=== PATIENT | male | born 1930 | race Caucasian/White ===

== ENCOUNTER 2017-07-24 01:39 | Day surgery (SDC) | payer OTHER ==
[~2017-07-24] VITALS: Ht 175.3 cm; Wt 56.7 kg
--- NOTE | ~2017-07-24 | O ---
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 PROCEDURE: Enucleation of left eye with implantation of 16 mm Medpor sphere with muscles attached to implant, conjunctivoplasty, temporary tarsorrhaphy. SURGEON: Alejandro Antonio MD ATTENDANT ARCADE: None. ANESTHESIA: General. COMPLICATIONS: None. 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 He regularly receives intraocular antivegf injections in order to control his glaucoma. His eye is chronically painful. The patient recently had a pigmented lesion in the temporal inferior aspect of the left eye appreciated had an exam for his neovascular glaucoma. Subsequent evaluation and surgery showed that histopathologically this represented a malignant melanoma. Since the patient's left eye is nonseeing, he is chronically painful and now has a malignant conjunctival neoplasm, removal of the eye is planned. Informed consent was obtained to include but not limited to the potential risks for bleeding, infection, and the potential need for further surgery or treatment. DESCRIPTION OF PROCEDURE: The patient was taken to the operating room where general anesthesia was administered. The operating microscope was brought into position and the pathologist was brought to the room. The pathology was demonstrated to the pathologist, so that the pathologist would know where the [address] [address] OPERATIVE REPORT Name: SCOOBY BLISS Tyrel Room #: 150-11 [facility] Raymundo#: [id number] Admission: 07/24/17 Attend Phys: Alejandro Antonio MD Discharge: Date of : 30 Report #: [id number] conjunctival malignant melanoma was going to be. A discussion was undertaken as to the best way to process the tissue and the decision was ultimately made to leave the conjunctival cuff attached to the corneoscleral limbus and for the globe and the conjunctiva to be processed in one unit. The left retrobulbar space was then anesthetized with Xylocaine with epinephrine mixed with Marcaine and Wydase. An additional anesthetic was administered subconjunctivally anteriorly. The lid margins were then anesthetized with the same anesthetic mixture. The patient was subsequently prepped and draped in the usual sterile fashion. A moistened sponge was placed over the right eye while a lid speculum was placed on the left side. A 360 degree conjunctival peritomy was undertaken utilizing the operating microscope. Hemostasis was diligently achieved with diligent pinpoint monopolar cautery. The cuff of tissue inferotemporally around the melanoma was over 5 mm to ensure that no gross tumor would be left and there would be an excellent chance to clear margins. This took the conjunctiva all the way back to the lateral rectus muscle insertion and the inferior rectus muscle insertions. The oblique quadrants were then bluntly dissected. The lateral rectus muscle was then grasped with a muscle hook and cleaned of its surrounding connective tissue. A 5-0 Vicryl suture was then passed through its insertion with a locking bite at each margin. The muscle was then transected from the globe and drawn out of the field with a . The inferior, medial and superior rectus muscles were similarly isolated and retracted from the globe with a 5-0 double arm Vicryl suture. A 4-0 black silk suture was placed through the insertion of the left lateral rectus muscle in order to provide traction. The oblique muscles were identified and cut where they attached to the globe. The optic nerve was then clamped for 2 minutes. The clamp was released and the nerve was clamped once for 3 minutes. The nerve was clamped one last time for 3 more minutes. The optic nerve was then cut with an enucleation scissor and the globe oriented for the pathologist once more. It was passed off the field. An 18 mm sphere could be placed in the socket, but it appeared relatively tight. A decision was made to use a 16 mm Medpor sphere which was vacuum aspirated in antibiotic irrigation solution. It was subsequently reposited behind posterior tenons with the aid of an easy glide introducer. Posterior tenons was then closed over the implant with interrupted 5-0 Vicryl sutures. The medial and lateral rectus muscles were drawn to each other with 5-0 Vicryl sutures. The superior and inferior rectus muscles were drawn to the medial and lateral rectus muscles with interrupted 5-0 Vicryl sutures. The anterior tenons were then closed with interrupted 5-0 Vicryl sutures. Attention was then turned to the conjunctiva, which was obviously woefully deficient to close the defect with the generous excision done at the [facility] [address] [place] [address] OPERATIVE REPORT Name: SCOOBY BLISS Room #: 150-11 [facility]#: [id number] Admission: 07/24/17 Attend Phys: Alejandro Antonio MD Discharge: Date of : 30 Report #: [id number] of the case. A conjunctival flap was developed superonasally and rotated inferotemporally. It was secured with interrupted 6-0 Vicryl sutures with buried knots. A small conformer was placed and an additional aliquot of the anesthetic mixture used at the beginning of the case was administered. Erythromycin ointment was then placed in this cul-de-sac, following which a temporary tarsorrhaphy was fashioned from a short section of IV tubing and a double armed 5-0 nylon suture passed. A Telfa pad was placed on the eyelids followed by 3 eye pads, which were held in place with silk tape and Mastisol. The patient was subsequently transported to the recovery area having tolerated the procedures well with no anesthetic or operative complications being noted. By: [id number] Alejandro Antonio MD /nt
--- NOTE | ~2017-07-24 | S ---
[facility] [address] [place] [address] SURGICAL PATH RPT PROCEDURE Name: SCOOBY BLISS Room #: 150-11 [facility] M.R.#: [id number] Admission: 07/24/17 Date of : 30 Discharge: Report #: [id number] Path Case #: [id number] PATHOLOGY REPORT DRAFT COLLECTION DATE: 07/24/2017 RECEIVED DATE: 07/24/2017 SPECIMEN(S) RECEIVED: A.Left eye, suture at lateral rectus
[~2017-07-24 01:39] MED LIST: ATORVASTATIN CA40 MG PO; CARVEDILOL3.125 MG PO; CLARITIN10 MG PO; COUMADIN 2 MG TA2 M1; HYDRALAZINE 2525 MG PO; HYDROCODON-ACE1 EAC7 PO; IMDUR 60 MG TAB60 M1 PO; LASIX 40 MG TAB40 M2 PO; LORAZEPAM 1 MG T1 M1 PO; MELATONIN PO; MIRALAX17 GM PO; NORVASC10 MG PO; PLAVIX 75 MG TA75 M1 PO; PRILOSEC OTC20 MG PO; SIMBRINZA 1%-0.28 ML OPHTHALMIC; TIMOPTIC5 ML OPHTHALMIC; XALATAN2.5 ML OPHTHALMIC
[2017-07-24 13:00] VITALS: BP 120/84
[2017-07-24 13:10] LABS: CALCIUM 9.8 mg/dL (8.5-10.1); CREATININE 2.1 mg/dL (0.7-1.3); POTASSIUM 3.9 mmol/L (3.5-5.1)
[2017-07-24 13:16] LABS: ALBUMIN 3.9 g/dL (3.4-5.0); TOTAL BILIRUBIN 0.7 mg/dL (<0.1-1.0); TOTAL PROTEIN 7.8 g/dL (6.4-8.2)
[2017-07-24 13:17] LABS: PROTIME 10.7 Seconds (9.3-11.4)
== END 2017-07-24 16:45 | disposition home or self-care (01) ==
LOC: TBA 01:39 → OR 01:39
PROVIDERS: Ophthalmology
DX: C69.02 Malignant neoplasm of left conjunctiva (principal); H54.42 Blindness, left eye, normal vision right eye; H40.89 Other specified glaucoma
CPT/HCPCS: 50010; 50101; 50386; 50398; 51636; 51853; 53500; 56527; 56528; 56531; 62110; 62900; 64037; 70005